=== PATIENT | male | born 2005 | race Caucasian/White ===

== ENCOUNTER 2024-09-03 09:49 | Emergency (ER) | payer BC ==
[2024-09-03 09:58] VITALS: RESP 18; TEMP 97.7
--- NOTE | 2024-09-03 10:18 | ERPHSYRPT ---
- History of Present Illness Time Seen by Provider: 09/03/24 10:05 Historian: patient Exam Limitations: no limitations Patient Subjective Stated Complaint: Pt states "I have lower abdominal pain. I am having a hard time peeing and my ball area feels swollen and tender." Triage Nursing Assessment: Pt presented alert and oriented X 3, skin pwd. Pt ambulates with an upright steady gait, able to speak in clear full senences. Pt resting comfortably on the bed. Physician History: For the past 3 hours pt has had constant lower abdominal pain 9/10 in severity, dysuria and tender/swollen testes. LBM was yesterday & wnl. Pt denies trauma, chest pain, shortness of air, nausea, vomiting, fever. Allergies/Adverse Reactions: No Known Drug Allergies Allergy (Verified 09/03/24 09:58) Home Medications: No Reportable Medications [No Reported Medications] 09/03/24 [History] Hx Tetanus, Diphtheria Vaccination/Date Given: Yes Hx Influenza Vaccination/Date Given: No Hx Pneumococcal Vaccination/Date Given: No Immunizations Up to Date: No Travel Risk - International Travel Have you traveled outside of the country in past 3 weeks: No - Emerging Infectious Disease Are you exhibiting symptoms associated with any current EIDs: No - Review of Systems Constitutional: No Fever Respiratory: No Dyspnea Cardiac: No Chest Pain Abdominal/Gastrointestinal: Abdominal Pain, No Nausea, No Vomiting, No Diarrhea Genitourinary Symptoms: Dysuria - Past Medical History Pertinent Past Medical History: No - Past Surgical History Past Surgical History: No - Social History Smoking Status: Never smoker Exposure to second hand smoke: No Drug Use: none - Social Determinants of Health Will the patient participate in the screening: Declined to provide - Nursing Vital Signs Nursing Vital Signs: Initial Vital Signs Temperature 97.7 F 09/03/24 09:53 Pulse Rate 92 H 09/03/24 09:53 Respiratory Rate 18 09/03/24 09:53 Blood Pressure 111/82 09/03/24 09:53 O2 Sat by Pulse Oximetry 98 09/03/24 09:53 Pain Scale Pain Intensity 0 - Physical Exam General Appearance: alert Eye Exam: PERRL/EOMI Ears, Nose, Throat Exam: TMs normal, pharynx normal Neck Exam: normal inspection Respiratory Exam: normal breath sounds, airway intact Cardiovascular Exam: normal heart sounds Gastrointestinal/Abdomen Exam: tenderness (moderate lower abdominal tenderness), other (B.S. mildly hyperactive and normotonic) Male Genitalia Exam: testicular tenderness (mild bilateral testicusar tenderness and edema), No penile discharge Back Exam: normal inspection Extremity Exam: No pedal edema Neurologic Exam: alert, cooperative Skin Exam: warm, dry SpO2 Interpretation: normal SpO2: 98 O2 Delivery: Room Air - Course Nursing assessment & vital signs reviewed: Yes - CT Exams Abdomen/Pelvis CT Interpretation: Discussed w/radiologist (Normal) - Radiology Ultrasound Exam Scrotal Ultrasound: discussed w/radiologist (Minimal left varicocele. Remaining testicular sonogram is negative.) Ordered Tests: Active Orders 24 hr Category Date Time Status IV Insertion STAT Care 09/03/24 10:13 Active ABDOMEN AND PELVIS W/0 CONTRAS [CT] Stat Exams 09/03/24 10:13 Completed TESTICLE [US] Stat Exams 09/03/24 10:14 Completed AMYLASE Stat Lab 09/03/24 10:28 Completed CBC W DIFF Stat Lab 09/03/24 10:28 Completed CMP Stat Lab 09/03/24 10:28 Completed LIPASE Stat Lab 09/03/24 10:28 Completed MAGNESIUM Stat Lab 09/03/24 10:28 Completed UA W/RFX UR CULTURE Stat Lab 09/03/24 11:48 Completed Medication Summary Discontinued Medications Generic Name Dose Route Start Last Admin Trade Name Karina PRN Reason Stop Dose Admin Ketorolac Tromethamine 30 mg 09/03/24 10:15 09/03/24 10:31 Ketorolac Tromethamine 30 Mg/Ml Inj IV 09/03/24 10:16 30 mg STAT ONE Administration Ketorolac Tromethamine Confirm 09/03/24 10:30 Ketorolac Tromethamine 30 Mg/Ml Inj Administered 09/03/24 10:31 Dose 30 mg .ROUTE .STK-MED ONE Lab/Rad Data: Laboratory Result Diagrams 09/03/24 10:28 09/03/24 10:28 Laboratory Results 09/03/24 09/03/24 09/03/24 Range/Units 11:48 11:48 10:28 WBC (4.23-9.07) x10^3/uL RBC (4.63-6.08) x10^6/uL Hgb (13.7-17.5) g/dL Hct (40.1-51.0) % MCV (79.0-92.2) fL MCH (25.7-32.2) pg MCHC (32.3-36.5) g/dL RDW (11.6-14.4) % Plt Count (163-337) x10^3/uL MPV (9.4-12.4) fL Gran % (34.0-67.9) % Immature Gran % (Auto) (0.001-0.429) % Nucleat RBC Rel Count (0.00-0.2) % Eos # (Auto) (0.04-0.54) x10^3/uL Immature Gran # (Auto) (0.001-0.031) x10^3u/L Absolute Lymphs (auto) (1.32-3.57) x10^3/uL Absolute Monos (auto) (0.30-0.82) x10^3/uL Absolute Nucleated RBC (0.00-0.012) x10^3u/L Lymphocytes % (21.8-53.1) % Monocytes % (5.3-12.2) % Eosinophils % (0.8-7.0) % Basophils % (0.2-1.2) % Absolute Granulocytes (1.78-5.38) x10^3/uL Basophils # (0.01-0.08) x10^3/uL Sodium 137 (135-145) mmol/L Potassium 3.7 (3.5-5.1) mmol/L Chloride 104 (98-107) mmol/L Carbon Dioxide 26 (22-30) mmol/L Anion Gap 10.6 (5-15) MEQ/L BUN 12 (9-20) mg/dL Creatinine 0.92 (0.66-1.25) mg/dL Estimated GFR 121.4 ML/MIN Glucose 94 (74-106) mg/dL Calcium 9.4 (8.4-10.2) mg/dL Magnesium 1.8 (1.6-2.3) mg/dL Total Bilirubin 2.00 H (0.2-1.3) mg/dL AST 29 (17-59) U/L ALT 19 (0-50) U/L Alkaline Phosphatase 65 (38-126) U/L Serum Total Protein 7.7 (6.3-8.2) g/dL Albumin 4.9 (3.5-5.0) g/dL Amylase 82 (30-110) U/L Lipase 39 (23-300) U/L Urine Color Yellow (Yellow) Urine Appearance Clear (Clear) Urine pH 6.0 (4.6-8.0) Ur Specific [place] >=1.030 A (1.005-1.030) Urine Protein Trace A (Negative) Urine Glucose (UA) Negative (Negative) mg/dL Urine Ketones Trace A (Negative) Urine Blood Negative (Negative) Urine Nitrite Negative (Negative) Urine Bilirubin Negative (Negative) Urine Urobilinogen 1.0 A (0.2) mg/dL Ur Leukocyte Esterase Negative (Negative) U Hyaline Cast (Auto) NONE SEEN (0-2) /LPF Urine Microscopic RBC 0-2 (0-5) /HPF Urine Microscopic WBC 0-2 (0-5) /HPF Ur Epithelial Cells None Seen (None Seen) /HPF Urine Bacteria None Seen (None Seen) /HPF Urine Culture Reflexed NO (NO) Chlamydia DNA Probe NOT DETECTED (NEGATIVE) N.gonorrhoeae DNA Probe NOT DETECTED (NEGATIVE) 09/03/24 Range/Units 10:28 WBC 5.9 (4.23-9.07) x10^3/uL RBC 5.14 (4.63-6.08) x10^6/uL Hgb 14.2 (13.7-17.5) g/dL Hct 42.7 (40.1-51.0) % MCV 83.1 (79.0-92.2) fL MCH 27.6 (25.7-32.2) pg MCHC 33.3 (32.3-36.5) g/dL RDW 11.9 (11.6-14.4) % Plt Count 265 (163-337) x10^3/uL MPV 11.5 (9.4-12.4) fL Gran % 71.1 H (34.0-67.9) % Immature Gran % (Auto) 0.3 (0.001-0.429) % Nucleat RBC Rel Count 0.0 (0.00-0.2) % Eos # (Auto) 0.03 L (0.04-0.54) x10^3/uL Immature Gran # (Auto) 0.02 (0.001-0.031) x10^3u/L Absolute Lymphs (auto) 1.28 L (1.32-3.57) x10^3/uL Absolute Monos (auto) 0.30 (0.30-0.82) x10^3/uL Absolute Nucleated RBC 0.00 (0.00-0.012) x10^3u/L Lymphocytes % 21.8 (21.8-53.1) % Monocytes % 5.1 L (5.3-12.2) % Eosinophils % 0.5 L (0.8-7.0) % Basophils % 1.2 (0.2-1.2) % Absolute Granulocytes 4.16 (1.78-5.38) x10^3/uL Basophils # 0.07 (0.01-0.08) x10^3/uL Sodium (135-145) mmol/L Potassium (3.5-5.1) mmol/L Chloride (98-107) mmol/L Carbon Dioxide (22-30) mmol/L Anion Gap (5-15) MEQ/L BUN (9-20) mg/dL Creatinine (0.66-1.25) mg/dL Estimated GFR ML/MIN Glucose (74-106) mg/dL Calcium (8.4-10.2) mg/dL Magnesium (1.6-2.3) mg/dL Total Bilirubin (0.2-1.3) mg/dL AST (17-59) U/L ALT (0-50) U/L Alkaline Phosphatase (38-126) U/L Serum Total Protein (6.3-8.2) g/dL Albumin (3.5-5.0) g/dL Amylase (30-110) U/L Lipase (23-300) U/L Urine Color (Yellow) Urine Appearance (Clear) Urine pH (4.6-8.0) Ur Specific [place] (1.005-1.030) Urine Protein (Negative) Urine Glucose (UA) (Negative) mg/dL Urine Ketones (Negative) Urine Blood (Negative) Urine Nitrite (Negative) Urine Bilirubin (Negative) Urine Urobilinogen (0.2) mg/dL Ur Leukocyte Esterase (Negative) U Hyaline Cast (Auto) (0-2) /LPF Urine Microscopic RBC (0-5) /HPF Urine Microscopic WBC (0-5) /HPF Ur Epithelial Cells (None Seen) /HPF Urine Bacteria (None Seen) /HPF Urine Culture Reflexed (NO) Chlamydia DNA Probe (NEGATIVE) N.gonorrhoeae DNA Probe (NEGATIVE) - Progress Progress: unchanged Counseled pt/family regarding: lab results, diagnosis, need for follow-up, rad results Medical Desision Making - Diagnostic Testing Diagnostic test were ordered, analyzed, and reviewed by me: Yes Radiological Interpretation: Discussed w/ radiologist - Departure Departure Disposition: Home Clinical Impression: Abdominal pain, Testicular pain Condition: Stable Critical Care Time: No Referrals: DOCTOR,NO FAMILY [Primary Care Provider] - Follow up/PCP as directed Instructions: Abdominal pain Additional Instructions: Follow up with private doctor tomorrow. Forms: Work/School Release Form
[2024-09-03 10:29] LABS: Absolute Neutrophil Ct (ANC) 4.16 x10^3/uL (1.78-5.38); BASOPHIL % 1.2 % (0.2-1.2); Basophil (Absolute #) 0.07 x10^3/uL (0.01-0.08); Eosinophil % 0.5 % (0.8-7.0); Eosinophil (Absolute #) 0.03 x10^3/uL (0.04-0.54); Hematocrit 42.7 % (40.1-51.0); Hemoglobin 14.2 g/dL (13.7-17.5); IMMATURE GRAN # 0.02 x10^3u/L (0.001-0.031); IMMATURE GRAN % 0.3 % (0.001-0.429); Lymphocyte (Absolute #) 1.28 x10^3/uL (1.32-3.57); Lymphocytes % 21.8 % (21.8-53.1); Mean Cell Volume 83.1 fL (79.0-92.2); Mean Corpuscular Hemoglobin 27.6 pg (25.7-32.2); Mean Corpuscular Hgb Concent. 33.3 g/dL (32.3-36.5); Mean Platelet Volume 11.5 fL (9.4-12.4); Monocytes % 5.1 % (5.3-12.2); Neutrophil % 71.1 % (34.0-67.9); Platelet Count 265 x10^3/uL (163-337); Red Blood Count 5.14 x10^6/uL (4.63-6.08); Red Cell Distribution Width 11.9 % (11.6-14.4); White Blood Count 5.9 x10^3/uL (4.23-9.07)
[2024-09-03] MEDS ORDERED: TORAdol 30 mg Injection ONE (10:30)
[2024-09-03] MEDS: TORAdol 30 mg Injection IV ONE (10:31)
[2024-09-03 10:46] LABS: ALBUMIN 4.9 g/dL (3.5-5.0); ANION GAP 10.6 MEQ/L (5-15); Calcium 9.4 mg/dL (8.4-10.2); Creatinine 1 0.92 mg/dL (0.66-1.25); EST GLOMERULAR FILTRATION RATE 121.4 ML/MIN; MAGNESIUM 1.8 mg/dL (1.6-2.3); Potassium 3.7 mmol/L (3.5-5.1); Total Protein 7.7 g/dL (6.3-8.2)
--- NOTE | 2024-09-03 11:15 | XRAY ---
Indication: Bilateral pain and swelling. Two-dimensional testicular sonogram performed. Comparison: None Both testicles are homogeneous in echogenicity with normal color perfusion. Right testicle measures 5.2 x 2.5 x 3.0 cm and left measures 5.0 x 2.5 x 3.1 cm. left and right epididymis sonographically unremarkable. Minimal left varicocele accentuated with Valsalva maneuvering. Tiny nonspecific bilateral hydroceles. Impression: Minimal left varicocele. Remaining testicular sonogram is negative.
--- NOTE | 2024-09-03 11:20 | XRAY ---
Indication: Lower abdominal/testicular pain. Multiple contiguous axial images obtained through the abdomen and pelvis without contrast. Comparison: None Lung bases clear. Heart not enlarged. Noncontrasted stomach and bowel loops appear nonobstructed with normal appendix. No free fluid/air. Remaining liver, gallbladder, pancreas, spleen, adrenal glands, kidneys, ureters, bladder, and aorta are unremarkable for noncontrast exam. Osseous structures intact. No ventral or inguinal hernias. Impression: Normal CT abdomen/pelvis without contrast exam.
[2024-09-03 12:00] LABS: Appearance Clear (Clear); Bacteria None Seen /HPF (None Seen); Bilirubin Negative (Negative); Blood Negative (Negative); Epithelial Cells None Seen /HPF (None Seen); Glucose, Urine Negative (Negative); Hyaline Casts NONE SEEN /LPF (0-2); Ketones Trace (Negative); Leukocyte Esterase Negative (Negative); Nitrite Negative (Negative); Protein,Urine Dip Trace (Negative); RBC 0-2 /HPF (0-5); Specific Gravity >=1.030 (1.005-1.030); WBC 0-2 /HPF (0-5)
[2024-09-03 12:16] VITALS: PULSE 69
[2024-09-03 13:23] LABS: CHLAMYDIA DNA NOT DETECTED (NEGATIVE); GC DNA Probe NOT DETECTED (NEGATIVE)
[2024-09-03 14:07] VITALS: BP 116/62
[2024-09-03 14:19] VITALS: O2SAT 98
== END 2024-09-03 14:30 | disposition home or self-care (01) ==
LOC: ED 09:49
DX: R10.30 Lower abdominal pain, unspecified (principal); N50.811 Right testicular pain; N50.812 Left testicular pain; R30.0 Dysuria
CPT/HCPCS: 36415; 74176; 76870; 80053; 81001; 82150; 83690; 83735; 85025; 87491; 87591; 96374; 99284; 99285; 99291; J1885